=== PATIENT | male | born 1975 | race Caucasian/White ===

== ENCOUNTER → 2018-07-06 | Outpatient (CLI) | payer OTHER ==
--- NOTE | 2018-07-06 11:43 | REP ---
Hepatobiliary scan and gallbladder ejection fraction: History: However quadrant abdominal tenderness. Right upper quadrant pain after eating. Technique: 6.6 mCi of technetium-99m mebrofenin was injected and sequential anterior images are acquired. 65 minutes after the mebrofenin injection, the patient consumed 8 ounces Ensure and an additional 60 minutes of imaging was acquired. Regions of interest are plotted around the gallbladder. Findings: The initial hepatocellular parenchymal uptake phase is normal and homogeneous. Intra- and extra-hepatic bile ducts and duodenum are labeled by the 10 -minute image. The gallbladder is not visualized during the initial 60 minutes. The gallbladder was not visualized on three hour delayed images. These findings are compatible with cystic duct obstruction. There is normal washout from the liver parenchyma into the small intestine on subsequent images. Impression: Absent gallbladder visualization consistent with cystic duct obstruction. Otherwise negative. Electronically Signed by Loyd Scruggs MD 07/06/2018 11:34 A
== END ==
LOC: M RAD 08:09
PROVIDERS: ATTEND Physician Assistant
DX: R10.811 Right upper quadrant abdominal tenderness (principal)
CPT/HCPCS: 78226; A9537

== ENCOUNTER 2018-09-01 05:47 | Day surgery (SDC) | payer OTHER ==
[~2018-09-01] VITALS: Ht 182.9 cm; Wt 125.2 kg
[2018-09-01] MEDS ORDERED: LR 1,000 ML IV SCH ×2 (07:00→09:45)
[2018-09-01] MEDS ORDERED: BUPIVACAINE HCL 0.25% 30 ML VIAL As Ordered ONE (07:09)
[2018-09-01] MEDS ORDERED: PROPOFOL 200 MG/20 ML VIAL As Ordered ONE (07:13)
[2018-09-01] MEDS ORDERED: fentaNYL 100 MCG/2 ML INJECTION (J3010) As Ordered ONE ×3 (07:13→08:06)
[2018-09-01] MEDS ORDERED: MIDAZOLAM INJ 2 MG/2 ML VIAL (J2250) As Ordered ONE (07:13)
[2018-09-01] MEDS ORDERED: LIDOCAINE 2% INJ 100 MG/5 ML SDV (FOR ANES.) As Ordered ONE (07:13)
[2018-09-01] MEDS ORDERED: ROCURONIUM BROMIDE 50 MG/5 ML VIAL As Ordered ONE ×2 (07:13→07:42)
[2018-09-01] MEDS ORDERED: ESMOLOL INJ 100MG/10ML VIAL As Ordered ONE (08:04)
[2018-09-01] MEDS ORDERED: KETOROLAC 60 MG/2 ML VIAL (J1885) As Ordered ONE (08:07)
[2018-09-01] MEDS ORDERED: dexameTHASONE 4 MG/ML 1ML VIAL (J1100) As Ordered ONE (08:08)
[2018-09-01] MEDS ORDERED: ONDANSETRON 4MG/2ML VIAL (J2405) As Ordered ONE (08:08)
[2018-09-01] MEDS ORDERED: METOCLOPRAMIDE INJ 10MG/2ML VIAL (J2765) IV PRN (09:45)
[2018-09-01] MEDS ORDERED: ONDANSETRON 4MG/2ML VIAL (J2405) IV PRN (09:45)
[2018-09-01] MEDS ORDERED: fentaNYL 100 MCG/2 ML INJECTION (J3010) IV PRN (09:45)
[2018-09-01] MEDS ORDERED: NORCO, ANEXSIA 5/325MG TABLET (HYDROcodone/ACETAMINOPHEN) PO PRN (09:45)
[2018-09-01] MEDS ORDERED: ACETAMINOPHEN TAB 650MG DOSE (2X325MG) PO PRN (09:45)
[2018-09-01] MEDS ORDERED: PERCOCET 5MG/325MG TAB PO PRN (09:45)
[2018-09-01] MEDS ORDERED: MEPERIDINE INJ 25 MG/ML VIAL (J2175) IV PRN (09:45)
[2018-09-01] MEDS ORDERED: IBUPROFEN 600 MG TAB PO PRN (09:45)
[2018-09-01 11:30] VITALS: BP 142/80
--- NOTE | 2018-09-01 17:26 | RO ---
DATE OF PROCEDURE: 09/01/2018 PREOPERATIVE DIAGNOSIS: Gallstones with occluded cystic duct. POSTOPERATIVE DIAGNOSIS: Cholelithiasis with cystic duct obstruction and chronic cholecystitis. PROCEDURE PERFORMED: Laparoscopic cholecystectomy. SURGEON: Dr. Xavier Landry SENIOR GRAPHIC DESIGNER: ANESTHESIA: General. INDICATIONS FOR PROCEDURE: Patient is a 42-year-old man who had several episodes of upper abdominal pain. Imaging revealed cholelithiasis and a nuclear biliary scan revealed cystic duct obstruction. He is now for a laparoscopic cholecystectomy. DESCRIPTION OF PROCEDURE: The patient was placed supine on the operating table. He was placed under general endotracheal anesthesia. The patient's abdomen was prepped and draped in a sterile fashion. 0.25% Marcaine was infiltrated at each of the trocar sites. Initial entry was in the left upper quadrant. A Veress needle was inserted through a small incision and after a positive hanging drop test, the abdomen was insufflated with carbon dioxide gas. A 5 mm port was placed over the 5 mm 30 degrees scope, and this was advanced through the abdominal wall without difficulty. Initial examination showed normal right and left lobes of the liver. There was some omentum up over the right lobe partially. There was abundant omental fat covering everything in the upper abdomen, and there were some normal loops of small bowel and colon noted low in the abdomen. The patient was tilted to a reverse Trendelenburg position. A small incision was made above the umbilicus, and an 11 mm port was placed. Two 5 mm ports were placed in the right upper quadrant. The omentum was pulled down off of the liver and the gallbladder was exposed. The gallbladder appeared somewhat thick walled and pale. The gallbladder was grasped and elevated. Dissection was begun near the gallbladder neck. These tissues appeared somewhat thickened and scarred. Dissection proceeded through the pericholecystic tissues using primarily the hook cautery. There was significant scarring around the gallbladder neck and the proximal cystic duct. With careful dissection, the cystic duct was dissected free. There appeared to be stones in the gallbladder neck and proximal cystic duct. The cholecystic artery was identified. The artery was doubly clipped and divided. The cystic duct was then cleared of any surrounding tissues and then also doubly clipped and divided. A small amount of debris was released when the cystic duct was cut and this was suctioned from the abdomen. The gallbladder was then dissected free from the gallbladder bed using cautery dissection. Near the top of the fundus, a small opening was created into the gallbladder and one or two tiny stones were released with a little bit of clear fluid. This was irrigated and all material was returned through the suction. Once the gallbladder was completely freed, it was placed in an Endopouch. The right upper quadrant was then irrigated copiously with saline and inspected. There was no evidence of any bleeding or bile leak. The patient was returned to a flat position. The abdomen was deflated and the trocars were removed. It was necessary to extend the fascial incision at the supraumbilical site to remove the gallbladder, which was completely filled with small stones. This was sent for permanent pathology. The fascia at the supraumbilical site was closed with interrupted simple sutures of #2-0 Vicryl. The skin incisions were all closed with #5-0 Vicryl and Steri-Strips. Light dressings were applied. The patient tolerated the procedure well without apparent complication. He was awakened in the operating room, extubated and moved to the recovery room in stable condition.
== END 2018-09-01 11:38 | disposition home or self-care (01) ==
LOC: M SDC 05:47
PROVIDERS: ATTEND Surgery
DX: K80.18 Calculus of gallbladder with other cholecystitis without obstruction (principal)
CPT/HCPCS: 47562; 88304; J1100; J1885; J2250; J2405; J3010

== ENCOUNTER → 2020-07-06 | Outpatient (CLI) | payer OTHER ==
[~2020-07-06] MED LIST: ROSU10TA6 PO
== END ==
LOC: M LABSMTC 14:27
PROVIDERS: ATTEND Anesthesiology
DX: Z01.812 Encounter for preprocedural laboratory examination (principal); Z20.822 Contact with and (suspected) exposure to COVID-19

== ENCOUNTER 2020-07-11 08:47 | Day surgery (SDC) | payer OTHER ==
[~2020-07-11] VITALS: Ht 182.9 cm; Wt 129.7 kg
[~2020-07-11 08:47] MED LIST changes: +LIDOCAINE 2% 100MG/5ML SDV (FOR ANES.) As Ordered ONE; +NS 1,000 ML IV ONE; +propofoL 500 MG/50 ML VIAL As Ordered ONE
[2020-07-11] MEDS ORDERED: fentaNYL 100 MCG/2 ML INJECTION (J3010) As Ordered ONE (08:50)
--- NOTE | 2020-07-11 10:25 | ROOR ---
Patient Name: Romeo San Procedure Date: 07/11/2020 9:16 AM Date of : 1975 Age: 44 Room: [facility] Gender: Male Note Status: Finalized Procedure: Upper GI endoscopy Indications: Heartburn, Suspected esophageal reflux Providers: Xavier Landry MD Referring MD: Lauren Lott Requesting Provider: Medicines: Monitored Anesthesia Care Complications: No immediate complications. Procedure: Pre-Anesthesia Assessment: - Prior to the procedure, a History and Physical was performed, and patient medications and allergies were reviewed. The patient is competent. The risks and benefits of the procedure and the sedation options and risks were discussed with the patient. All questions were answered and informed consent was obtained. Patient identification and proposed procedure were verified by the physician, the nurse and the anesthesiologist in the endoscopy suite. Mental Status Examination: alert and oriented. Airway Examination: normal oropharyngeal airway and neck mobility. Prophylactic Antibiotics: The patient does not require prophylactic antibiotics. Prior Anticoagulants: The patient has taken no previous anticoagulant or antiplatelet agents. ASA Grade Assessment: II - A patient with mild systemic disease. After reviewing the risks and benefits, the patient was deemed in satisfactory condition to undergo the procedure. The anesthesia plan was to use monitored anesthesia care (MAC). Immediately prior to administration of medications, the patient was re-assessed for adequacy to receive sedatives. The heart rate, respiratory rate, oxygen saturations, blood pressure, adequacy of pulmonary ventilation, and response to care were monitored throughout the procedure. The physical status of the patient was re-assessed after the procedure. The Endoscope was introduced through the mouth, and advanced to the second part of duodenum. The upper GI endoscopy was accomplished without difficulty. The patient tolerated the procedure well. Findings: The examined esophagus was normal. The Z-line was irregular. Biopsies were taken with a cold forceps for histology. The entire examined stomach was normal. The first portion of the duodenum and second portion of the duodenum were normal. Impression: - Normal esophagus. - Z-line irregular. Biopsied. - Normal stomach. - Normal first portion of the duodenum and second portion of the duodenum. Recommendation: - Discharge patient to home. - Resume previous diet. - Continue present medications. - Await pathology results. - Return to endoscopist in 1 week. Procedure Code(s): --- Professional --- 10823, Esophagogastroduodenoscopy, flexible, transoral; with biopsy, single or multiple Diagnosis Code(s): --- Professional --- K22.8, Other specified diseases of esophagus R12, Heartburn CPT copyright 2019 [employer]. All rights reserved. The codes documented in this report are preliminary and upon external auditor review may be revised to meet current compliance requirements. Xavier Landry MD Xavier Landry MD 07/11/2020 10:25:15 AM Electronically signed by Xavier Landry MD Number of Addenda: 0 Note Initiated On: 07/11/2020 9:16 AM Estimated Blood Loss: Estimated blood loss was minimal.
--- NOTE | 2020-07-11 10:40 | ROOR ---
Patient Name: Romeo San Procedure Date: 07/11/2020 9:17 AM Date of : 1975 Age: 44 Room: [facility] Gender: Male Note Status: Finalized Procedure: Colonoscopy Indications: Screening in patient at increased risk: Colorectal cancer in mother before age 60, Last colonoscopy 10 years ago Providers: Xavier Landry MD Referring MD: Lauren Lott Requesting Provider: Medicines: Monitored Anesthesia Care Complications: No immediate complications. Estimated blood loss: Minimal. Procedure: Pre-Anesthesia Assessment: - Prior to the procedure, a History and Physical was performed, and patient medications and allergies were reviewed. The patient is competent. The risks and benefits of the procedure and the sedation options and risks were discussed with the patient. All questions were answered and informed consent was obtained. Patient identification and proposed procedure were verified by the physician, the nurse and the anesthesiologist in the endoscopy suite. Mental Status Examination: alert and oriented. Airway Examination: normal oropharyngeal airway and neck mobility. Prophylactic Antibiotics: The patient does not require prophylactic antibiotics. Prior Anticoagulants: The patient has taken no previous anticoagulant or antiplatelet agents. ASA Grade Assessment: II - A patient with mild systemic disease. After reviewing the risks and benefits, the patient was deemed in satisfactory condition to undergo the procedure. The anesthesia plan was to use monitored anesthesia care (MAC). Immediately prior to administration of medications, the patient was re-assessed for adequacy to receive sedatives. The heart rate, respiratory rate, oxygen saturations, blood pressure, adequacy of pulmonary ventilation, and response to care were monitored throughout the procedure. The physical status of the patient was re-assessed after the procedure. The Colonoscope was introduced through the anus and advanced to the ileocecal valve. The colonoscopy was somewhat difficult due to a redundant colon. The patient tolerated the procedure well. The quality of the bowel preparation was adequate to identify polyps. Findings: The perianal and digital rectal examinations were normal. A 6 mm polyp was found in the sigmoid colon. The polyp was sessile. The polyp was removed with a cold snare. Resection and retrieval were complete. Impression: - One 6 mm polyp in the sigmoid colon, removed with a cold snare. Resected and retrieved. Recommendation: - Discharge patient to home. - Resume previous diet. - Continue present medications. - Await pathology results. - Return to endoscopist in 1 week. Procedure Code(s): --- Professional --- 25170, Colonoscopy, flexible; with removal of tumor(s), polyp(s), or other lesion(s) by snare technique Diagnosis Code(s): --- Professional --- Z80.0, Family history of malignant neoplasm of digestive organs K63.5, Polyp of colon CPT copyright 2019 [employer]. All rights reserved. The codes documented in this report are preliminary and upon remote ruby on rails developer review may be revised to meet current compliance requirements. Xavier Landry MD Xavier Landry MD 07/11/2020 10:40:01 AM Electronically signed by Xavier Landry MD Number of Addenda: 0 Note Initiated On: 07/11/2020 9:17 AM Estimated Blood Loss: Estimated blood loss was minimal.
[2020-07-11 10:43] VITALS: BP 163/98
== END 2020-07-11 10:45 | disposition home or self-care (01) ==
LOC: M OPP 08:47
PROVIDERS: ATTEND Surgery
DX: Z12.11 Encounter for screening for malignant neoplasm of colon (principal); Z80.0 Family history of malignant neoplasm of digestive organs; R12 Heartburn; D12.5 Benign neoplasm of sigmoid colon; D13.0 Benign neoplasm of esophagus; K22.8 Other specified diseases of esophagus; E78.5 Hyperlipidemia, unspecified; Z79.899 Other long term (current) drug therapy
CPT/HCPCS: 43239; 45385; 88305; J3010

== ENCOUNTER → 2022-11-15 | Outpatient (CLI) | payer OTHER ==
[~2022-11-15] MED LIST changes: -LIDOCAINE 2% 100MG/5ML SDV (FOR ANES.) As Ordered ONE; -NS 1,000 ML IV ONE; -propofoL 500 MG/50 ML VIAL As Ordered ONE
== END ==
LOC: M RAD 07:31
PROVIDERS: ATTEND Surgery Vascular Surgery
DX: I87.2 Venous insufficiency (chronic) (peripheral) (principal)